=== PATIENT | female | born 1965 | race Caucasian/White ===

== ENCOUNTER 2022-03-08 14:21 | Emergency (ER) | payer BC ==
[~2022-03-08] VITALS: Ht 175.3 cm; Wt 94.3 kg
[2022-03-08] MEDS ORDERED: CYMBALTA (15:06)
[2022-03-08] MEDS ORDERED: AMLODIPINE (15:06)
[2022-03-08] MEDS ORDERED: LIPITOR (15:06)
[2022-03-08] MEDS ORDERED: IV NORMAL SALINE 1000 ML BAG IV ONE (15:45)
[2022-03-08] MEDS ORDERED: LIDOCAINE VISCUS 2% 15 ML UDC MM ONE (15:45)
[2022-03-08] MEDS ORDERED: MAG HYDROX/AL HYDROX/SIMETH 30 ML LIQUID UDC PO ONE (15:45)
[2022-03-08] MEDS ORDERED: ONDANSETRON 4 MG/2 ML VIAL IV ONE (15:45)
[2022-03-08 15:59] LABS: HEMATOCRIT 40.8 % (31.2-41.9); MEAN CORPUSCULAR HEMOGLOBIN 30.2 uug (24.7-32.8); MEAN CORPUSCULAR VOLUME 90.2 fL (75.5-95.3); PLATELET COUNT (AUTO) 321 K/uL (179-408)
[2022-03-08] MEDS ORDERED: ONDANSETRON 4 MG/2 ML VIAL ONE (16:11)
[2022-03-08] MEDS ORDERED: LIDOCAINE VISCUS 2% 15 ML UDC ONE (16:11)
[2022-03-08] MEDS ORDERED: MAG HYDROX/AL HYDROX/SIMETH 30 ML LIQUID UDC ONE (16:11)
[2022-03-08 16:14] LABS: BILIRUBIN,TOTAL 0.3 mg/dL (0.2-1.0); CREATININE 0.8 mg/dL (0.6-1.3); POTASSIUM 3.6 mmol/L (3.5-5.1); TOTAL PROTEIN, SERUM 8.1 g/dL (6.4-8.2)
[2022-03-08 16:19] LABS: LIPASE 78 U/L (73-393)
[2022-03-08] MEDS ORDERED: KETOROLAC TROMETHAMINE 15 MG INJ IVP ONE (18:00)
[2022-03-08] MEDS ORDERED: IV NORMAL SALINE 250 ML IV ONE (18:19)
[2022-03-08] MEDS ORDERED: IOHEXOL 300MG/ML 100 ML INFUS..BTL ONE (18:19)
[2022-03-08] MEDS ORDERED: SWABABLE VALVE TRANSFER SET EA MC ONE (18:19)
[2022-03-08] MEDS ORDERED: KETOROLAC TROMETHAMINE 15 MG INJ ONE (18:26)
--- NOTE | 2022-03-08 19:30 | NUR ---
Assumed care of patient from day shift RN. Patient [id number]. Stated she is still having some pain on right abdominal area. Informed ER
[2022-03-08] MEDS ORDERED: ONDA4TAB5 PO ×2 (19:34→22:27)
[2022-03-08] MEDS ORDERED: FENTANYL CITRATE 100 MCG/2 ML AMPUL IV ONE (19:45)
[2022-03-08] MEDS ORDERED: FENTANYL CITRATE 100 MCG/2 ML AMPUL ONE (19:48)
[2022-03-08] MEDS ORDERED: HYDROMORPHONE 1 MG/1 ML DISP.SYRIN IV ONE (21:15)
[2022-03-08] MEDS ORDERED: HYDROMORPHONE 1 MG/1 ML DISP.SYRIN ONE (21:19)
--- NOTE | 2022-03-08 22:25 | NUR ---
Dr. Lozano at bedside.
[2022-03-08] MEDS ORDERED: OXYC-128 PO ×2 (22:26→22:27)
[2022-03-08 22:50] VITALS: BP 131/86
== END 2022-03-08 22:48 | disposition home or self-care (01) ==
LOC: ER 14:21
DX: R10.11 Right upper quadrant pain (principal); E78.00 Pure hypercholesterolemia, unspecified; F32.A Depression, unspecified; Z79.899 Other long term (current) drug therapy; I10 Essential (primary) hypertension; M06.9 Rheumatoid arthritis, unspecified; Z82.49 Family history of ischemic heart disease and other diseases of the circulatory system
CPT/HCPCS: 99285; 74177; 96374; 76705; 71045; 96375; 96361; 80053; 83690; 85025; 84484; 36415; 93005; J1885; J2405; Q9967; J3010; J1170; J7040; A4663